=== PATIENT | male | born 1980 | race Hispanic/Latino ===

== ENCOUNTER 2020-10-31 15:26 | Emergency (ER) | payer SELFPAY ==
[~2020-10-31] VITALS: Ht 170.2 cm; Wt 125.0 kg
[~2020-10-31 15:26] MED LIST: AMOXICILLIN500 MG OR; AMOXICILLIN500 MG PO; ANUSOL-HC25 MG RE; BACLOFEN10 MG PO; BACTRIM DS1 TAB PO; FLEXERIL5 M1 PO; HYDROCHLOROT12.5 MG PO; KETOROLAC60 MG/2 ML IJ; MEDDOSEPAK PO; NAPROSYN500 MG PO; PERCOCET 5/325M1 TAB PO; PREDNISONE10 MG PO; PROAIR HFA IN; PROVENTIL IN; PROVENTIL INH17 GM IN; SOLU-MEDROL125 MG IM; ULTRAM50 M1 PO; VENTOLIN HFA IN; ZPAK PO
[2020-10-31 16:16] LABS: HEMATOCRIT 47.1 % (39.0-50.0); HEMOGLOBIN 15.4 g/dl (14.0-18.0); IMMATURE GRANULOCYTES 0.4 % (0.0-5.0); MEAN CORPUSCULAR HGB 28.8 pG CALC (26.0-32.0); MEAN CORPUSCULAR HGB CONC 32.7 g/dL CAL (32.0-36.0); NEUT# 5.92 thou/uL (1.82-7.42); RED BLOOD COUNT 5.35 mill/uL (4.70-6.10); RED CELL DISTRI WIDTH 12.6 % (11.5-15.5)
[2020-10-31 16:31] LABS: AMYLASE 102 u/l (30-110); BILIRUBIN, TOTAL 0.6 mg/dL (0.0-1.4); BUN 13 mg/dL (9-20); BUN/CREATININE RATIO 15 (12-20 (CALC)); CARBON DIOXIDE 28 mmol/l (22-30); CHLORIDE 94 mmol/l (95-108); CREATININE 0.9 mg/dL (0.7-1.3); ETHYL ALCOHOL 0 mg/dl (0-30); GFR > 60 ML/MIN (>=60 (CALC)); GFR FOR AFR.AMER. > 60 ML/MIN (>=60 (CALC)); LIPASE 512 u/l (23-300); MAGNESIUM 1.9 mg/dL (1.6-2.3); POTASSIUM 4.5 mmol/l (3.5-5.1); TOTAL PROTEIN 7.7 g/dL (6.3-8.2)
[2020-10-31 16:37] LABS: ALKALINE PHOSPHATASE 215 u/l (38-126); ANION GAP 11 (6-22 (CALC)); SGOT/AST 55 u/l (17-59); SODIUM 128 mmol/l (137-146)
[2020-10-31 16:40] LABS: ACT PARTIAL THROMBO TIME 29.4 SECONDS (20.0-32.5); INTERNATIONAL NORMALIZED RATIO 1.1 RATIO (0.7-1.3)
[2020-10-31 17:57] LABS: URINE BILIRUBIN - DIPSTICK NEGATIVE (NEGATIVE); URINE BLOOD DIPSTICK NEGATIVE (NEGATIVE); URINE COLOR YELLOW; URINE GLUCOSE - DIPSTICK >=1000 mg/dL (NEGATIVE); URINE KETONE NEGATIVE (NEGATIVE); URINE LEUK ESTERASE NEGATIVE (NEGATIVE); URINE PH 5.5 (4.5-8.0); URINE PROTEIN - DIPSTICK NEGATIVE (NEG-TRACE); URINE UROBILINOGEN - DIPSTICK 0.2 E.U./dL (0.2)
[2020-10-31 17:58] LABS: URINE NITRITE - DIPSTICK NEGATIVE (Negative)
[2020-10-31 19:16] VITALS: BP 115/78
== END 2020-10-31 19:21 | disposition home or self-care (01) | DRG 639 ==
LOC: ED 15:26
DX: E11.65 Type 2 diabetes mellitus with hyperglycemia (principal); T38.3X6A Underdosing of insulin and oral hypoglycemic [antidiabetic] drugs, initial encounter; Z91.120 Patient's intentional underdosing of medication regimen due to financial hardship; Z20.822 Contact with and (suspected) exposure to COVID-19

== ENCOUNTER 2021-05-13 10:07 | Emergency (ER) | payer SELFPAY ==
[~2021-05-13] VITALS: Ht 170.2 cm; Wt 113.0 kg
[2021-05-13] MEDS ORDERED: METFORMIN500 M2 PO (10:33)
[2021-05-13] MEDS ORDERED: LISINOPRIL2.5 MG PO (10:34)
[2021-05-13] MEDS ORDERED: NEOPROFEN10 MG/ML IV (10:34)
[2021-05-13] MEDS ORDERED: MOTRIN400 MG/TAB PO (11:33)
[2021-05-13 11:40] VITALS: BP 148/82
== END 2021-05-13 11:55 | disposition home or self-care (01) | DRG 552 ==
LOC: ED 10:07
DX: M54.50 Low back pain, unspecified (principal); I10 Essential (primary) hypertension; E11.9 Type 2 diabetes mellitus without complications; J45.909 Unspecified asthma, uncomplicated; V89.2XXA Person injured in unspecified motor-vehicle accident, traffic, initial encounter; Z79.84 Long term (current) use of oral hypoglycemic drugs

== ENCOUNTER 2022-10-18 22:02 | Emergency (ER) | payer SELFPAY ==
[~2022-10-18] VITALS: Ht 170.2 cm; Wt 113.3 kg
[~2022-10-18 22:02] MED LIST changes: +LISINOPRIL2.5 MG PO; +METFORMIN500 M2 PO; +MOTRIN400 MG/TAB PO; +NEOPROFEN10 MG/ML IV
[2022-10-18 22:23] VITALS: BP 114/71
[2022-10-18 22:30] VITALS: BP 125/70
[2022-10-18] MEDS ORDERED: OMEPRAZOLE DR40 MG PO (22:47)
[2022-10-18] MEDS ORDERED: TORADOL PO (23:35)
[2022-10-18 23:42] VITALS: BP 128/72
== END 2022-10-18 23:45 | disposition home or self-care (01) | DRG 605 ==
LOC: ED 22:02
DX: S20.212A Contusion of left front wall of thorax, initial encounter (principal); I10 Essential (primary) hypertension; E11.9 Type 2 diabetes mellitus without complications; J45.909 Unspecified asthma, uncomplicated; F17.200 Nicotine dependence, unspecified, uncomplicated; V18.0XXA Pedal cycle driver injured in noncollision transport accident in nontraffic accident, initial encounter; Y93.55 Activity, bike riding; Y92.410 Unspecified street and highway as the place of occurrence of the external cause